=== PATIENT | female | born 1965 | race Caucasian/White ===

== ENCOUNTER 2016-08-11 10:14 | Day surgery (SDC) | payer MEDICARE, MEDICAID ==
[~2016-08-11] VITALS: Ht 162.6 cm; Wt 90.0 kg
--- NOTE | 2016-08-11 09:05 | PCM.HPANE ---
Patient Data Surgeon Admitting Provider: Attending Provider:Moreno Pena MD Primary Care Physician:Sonia Fragoso MD Other Provider:Yanelis Akers Anesthesia Reason for Visit Dysphagia Ht/WT & BMI Body Mass Index Allergies Coded Allergies: Penicillins (Verified Allergy, Severe, HAS LUPUS. CAN'T TAKE, 02/15/16) TAPE (Verified Allergy, Severe, UNKNOWN, 02/15/16) diazepam (Verified Allergy, Severe, BECOMES VIOLENT, 02/15/16) Hallucination fluoxetine (Verified Allergy, Severe, Hallucinations, 02/15/16) marijuana (Verified Allergy, Severe, convulsion, involutary muscle spasms , difficulty breathing, 02/15/16) sulfamethoxazole (Verified Allergy, Severe, RASH, 02/15/16) trimethoprim (Verified Allergy, Severe, 02/15/16) erythromycin base (Verified Allergy, Intermediate, Diarrhea, 02/15/16) amoxicillin (Verified Allergy, Mild, Rash,Itching,, 02/15/16) hydrocodone (Verified Allergy, Mild, ITCHY NOSE, 02/15/16) itchy nose Past Anesthesia History Anesthesia History: Positive for:: Anesthesia Reactions (LOSES VERBAL FILTER), Denies:: Abnormal Airway, Difficult Intubation, Fam Anesthesia Reaction, Fam Malignant Hypertherm, Malignant Hyperthermia Diabetes History Hx Diabetes?: No MRSA MRSA: No Medications Blood Thinner: Aspirin Reported Medications Omeprazole 20 Mg Tablet.dr20 Mg PO BID Ref 0 10/19/15 Aspirin 81 Mg Vsyzar57 Mg PO DAILY Ref 0 10/19/15 Albuterol HFA (Proair HFA)8.5 Gm Hfa.aer.ad2 Puffs INHALATION Q4H PRN For Shortness of Breath #1 INHALER 10/19/15 Quetiapine Fumarate (Seroquel)100 Mg Llybsl021 Mg PO HS #30 TABLET Ref 0 01/20/15 Atorvastatin Calcium 20 Mg TabletUnknown Dose PO DAILY #30 Ref 0 12/17/14 Tacrolimus (Protopic)100 Gm Oint...g.100 Gm TP BID 03/19/14 Clobetasol Propionate/Emoll (Temovate Emollient 0.05% Crm)60 Gm Cream..g.60 Gm TP DAILY 03/19/14 Beclomethasone Dipropionate (Qvar)8.7 Gm Aer.w.adap8.7 Gm IH BID 03/19/14 Levothyroxine 100 Mcg Asjwlf529 Mcg PO AM For Thyroid Replacement #30 TABLET Ref 0 03/19/14 Ranitidine 150 Mg Lypgxdv492 Mg PO BID 30 Days Ref 0 03/19/14 [mary jo] No Conflict Check Topical 03/19/14 Venlafaxine ER (Effexor XR)150 Mg Cap.er.51o762 Mg PO DAILY #30 CAPSULE Ref 0 03/19/14 Temazepam 15 Mg Rdfmarq17 Mg PO HS PRN For Insomnia 30 Days Ref 0 03/19/14 Gabapentin 400 Mg Capsule1,200 Mg PO TID 30 Days Ref 0 03/19/14 Doxepin 150 Mg Uaiusyr425 Mg PO 03/19/14 Prazosin 2 Mg Capsule4 Mg PO AM 30 Days 03/19/14 Cyclobenzaprine 10 Mg Orxcdy25 Mg PO TID PRN muscle spasms 03/19/14 Hydroxychloroquine Sulfate 200 Mg Bbolyl885 Mg PO BID #30 TABLET Ref 0 03/19/14 Acyclovir 400 Mg Eccuin756 Mg PO BID 30 Days Ref 0 03/19/14 Discontinued Reported Medications Prazosin 2 Mg Capsule6 Mg PO HS 30 Days 03/19/14 History History of ENT Problems?: Yes HEENT History: Positive for:: Dysphagia Sinus Problem (ALLERGIC RHINITIS) Denies:: Abnormal Airway Difficult Intubation Hearing Problem Hx of Heart Problems?: Yes Cardiovascular History: Positive for:: Cardiac Surgery (OR/STENT 08/2010) Chest Pain Edema (HYPERLIPIDEMIA) Denies:: AICD Atrial Fibrillation Congestive Heart Failure Heart Murmur Hypertension Irregular Heartbeat Pacemaker Thrombophlebitis Valvular Heart Disease Hx of Respiratory Problem?: Yes Respiratory History: Positive for:: COPD Dyspnea Use of C-PAP Machine (JESSENIA+ SLEEP STUDY 02/2011) Denies:: Asthma Chest Surgery Cough Emphysema Hemoptysis Pneumonia Tuberculosis Hx Neurologic Problems?: Yes Neurological History: Positive for:: Seizures (?ETIOLOGY?) Denies:: Alzheimer's Disease CVA Dementia Dizziness Headaches Parkinson's Disease Hx of GI Problems?: Yes Gastrointestinal History: Positive for:: Gastroesphageal Reflux Heartburn Denies:: Cirrhosis Diverticulitis Gastrointestinal Bleeding Hepatitis Hiatal Hernia Rectal Bleeding Hx of Problems?: No Female Hx: Denies:: Currently Endometriosis Pelvic Inflammatory Problems with Breasts? Skin History: Positive for:: History Skin Disorders? (LUPUS/ HX OF HERPES SIMPLEX) Denies:: Pressure Ulcers Hx Musculoskeletal Problems?: Yes Musculoskeletal History: Positive for:: Back Injury Musculoskeletal Trauma (S/P SHOULDER RPR,LT WRIST GANGLION EXC.) Systemic Lupus (HX OF SJOGRENS) Denies:: Joint Replacement Hx of Psycho/Social Problems?: Yes Psycho Social History: Positive for:: Anxiety Hx Depression Denies:: Bipolar Disorder Suicide Attempt Hx Surgeries?: Yes (hyst, tonsil, jeremias) Hx Any Other Health Problems?: Yes Other History: Positive for:: Hospitalization Thyroid Disease Denies:: Cancer Endocrine Disease History Blood Transfusions: Denies:: Blood Transfuse Reaction Blood Transfusions Hx Diabetes: No Hx Alcohol Use: NoHx Substance Use: No Smoking Status: Former Smoker Have You Smoked inLast 12 mo: Yes Stop/Bang Risk Assessment Category Category 1A: Patient has history of documented sleep apnea, and HAS NOT received any narcotic, sedative or anesthesia administration during this stay. Category 1B: Patient has history of documented sleep apnea, and HAS received any narcotic , sedative or anesthesia administration during this stay Category 2: Patient has SUSPECTED Obstructive Sleep Apnea, and HAS received any narcotic , sedative or anesthesia administration during this stay. Category 3: Patient has SUSPECTED Obstructive Sleep Apnea and HAS NOT received narcotic, sedative or anesthesia administration during this stay. Category 4: Outpatient in Procedural Areas with known sleep apnea or who screen positive for High Risk via the STOP/BANG questionnaire. Exam Exam General Appearance: Alert, Oriented X3, Cooperative, Mild Distress HEENT/AIRWAY: MP 2, Neck Movement (from), Mouth Opening (upper and lower dentures, normal opening) Lungs: Clear to Auscultation Heart: Exam Unremarkable Plan Impression Patient chart reviewed, patient interviewed and anesthestic plan with risks, benefits, and alternatives discussed, and informed consent obtained. NPO Status: 4/5 at 2330 ASA Physical Status: ASA2 Mod Systemic Disease Anesthetic Plan: GA Bene/Risks/Altern/Consents: Yes HP Complete Prior to Induction: Yes Hernesto Lawton MD Aug 11, 2016 09:05
[~2016-08-11 10:14] MED LIST: ACYC400T2 PO; ALBU8.5H2 INHALATION; ASPI-973 PO; ATOR20TA65 PO; BECL8.7A6 IH; CLOB60CR4 TP; CYCL10TA9 PO; DOXE150C7 PO; GABA-504 PO; HYDR200T5 PO; LEVO100T6 PO; Lactated Ringer's 1,000 ML IV ONE; OMEP20TA86 PO; PRAZ2CAP2 PO; QUET100T PO; RANI150C4 PO; RES15 PO; TACR100O2 TP; VENL150C PO; [UNRECOGNIZED DRUG - OTHER] TOPICAL
[2016-08-11] MEDS ORDERED: fentaNYL-PF 50 mCg/mL 2 mL Inj ONE (10:15)
[2016-08-11] MEDS ORDERED: Propofol 10,000 mCg/mL 20 mL Inj ONE (10:15)
[2016-08-11 11:03] VITALS: BP 123/73; PULSE 84; RESP 16; O2SAT 95
[2016-08-11 12:00] VITALS: BP 139/96; PULSE 90; RESP 14; O2SAT 95
[2016-08-11 12:05] VITALS: BP 121/68; PULSE 90; RESP 14; O2SAT 98
[2016-08-11 12:15] VITALS: BP 128/69; PULSE 94; RESP 16; O2SAT 97
--- NOTE | 2016-08-11 12:19 | ENDO ---
[address] [address] ENDOSCOPY PROCEDURE PATIENT: KATIE BERRIOS : 1965 MR#: [id number] ADMIT: 08/11/2016 JOB ID: [id number] DATE OF SERVICE: 08/11/2016 PROCEDURE PERFORMED: Esophagogastroduodenoscopy. INDICATION: Dysphagia. ASA CLASSIFICATION, MALLAMPATI SCORE AND MEDICATIONS: The patient's ASA classification, Mallampati score and medications as per Dr. Hernesto Lawton's anesthesia report. INSTRUMENT USED: [id number]. PROCEDURE DETAILS: After informed consent was obtained, the patient was brought into the GI suite, where she was placed on oxygen via nasal cannula and monitored with continuous pulse oximeter, telemetry, and blood pressure monitoring. A time-out was performed. Then, she was placed in the left lateral decubitus position, and medications were administered for sedation. A bite block was passed. A standard EGD scope was inserted through the bite block and advanced under direct visualization without difficulty to the second portion of the duodenum. FINDINGS: 1. Normal appearing duodenal bulb, first and second portions. 2. Normal appearing pylorus. 3. In the antrum and body of the stomach, there was erythema. In the body of the stomach, there was an approximately 1 cm area where exudate was noted. We were able to clear the exudate with copious amounts of irrigation. The underlying mucosa appeared erythematous and edematous. Multiple random biopsies were obtained at the focal erythematous lesion, as well as random biopsies were obtained. 4. Retroflexed views in the gastric body revealed normal appearing cardia and fundus. No hiatal hernia was appreciated. 5. The GE junction was at approximately 40 cm and appeared regular. 6. Normal appearing esophagus. Multiple random biopsies were obtained in midesophagus secondary to the patient's complaint of dysphagia. IMPRESSION: Gastritis. RECOMMENDATIONS: 1. Await biopsy results. 2. Continue PPI daily. 3. Avoid NSAIDs. 4. Follow up in GI clinic in 2-4 weeks. COMPLICATIONS: None. ESTIMATED BLOOD LOSS: Less than 5 mL. MTDD
--- NOTE | 2016-08-11 12:28 | PCM.ANEP1 ---
Post Anesthesia Phase 1 PACU Phase 1 Assessment Vital Signs Vital Signs Date Time Temp Pulse Resp B/P Pulse Ox O2 Delivery O2 Flow Rate FiO2 08/11/16 12:15 94 16 128/69 97 Room Air 08/11/16 12:05 90 14 121/68 98 Room Air 08/11/16 12:00 90 14 139/96 95 Room Air 08/11/16 11:03 36.5 84 16 123/73 95 Room Air Anesthetic Administered: GA Level of Alertness: Awake, talking CHAPIN's with Equal Strength: Yes Pain: No Nausea or Vomiting: No Oxygen Delivery: Room Air Lungs: Normal Air Movement Hernesto Lawton MD Aug 11, 2016 12:28
--- NOTE | 2016-08-11 12:49 | PCM.ANEP2 ---
Post Anesthesia Evaluation ASA/CMS Post Anesthesia VS in Patient's Normal Range?: Yes Resp Stable; Airway Patent?: Yes CV Function & Hydration Stable: Yes Mental Status Recovered?: Yes Pain control Satisfactory?: Yes N/V Control Satisfactory?: Yes Hernesto Lawton MD Aug 11, 2016 12:49
--- NOTE | 2016-08-12 13:21 | PATH ---
SURGICAL PATHOLOGY Attending Physician:Enrique Aguero CASE STATUS: Signed Out PATIENT NAME: KATIE BERRIOS PID: [id number] : 1965 DATE COLLECTED:08/11/2016 22:11 SPECIMEN: 1: Stomach, Antrum, Biopsy 2: Gastric, Biopsy 3: Esophagus, Biopsy CLINICAL HISTORY: 1). ANTRAL BIOPSY 2). GASTRIC BODY BIOPSY 3). MID ESOPHAGEAL BIOPSY FINAL DIAGNOSIS: 1. Antral Biopsy: Mid chronic gastritis involving antral mucosa. Negative for evidence of Helicobacter. Negative for intestinal metaplasia. Negative for dysplasia and malignancy. 2. Gastric Body Biopsy: Mild diffuse chronic gastritis involving fundic mucosa. Negative for evidence of Helicobacter. Negative for intestinal metaplasia. Negative for dysplasia and malignancy. 3. Mid Esophagus Biopsy: Fragments of squamous epithelium with nonspecific mild reactive changes. Negative for dysplasia and malignancy. Eosinophils are not increased. ICD10: K29.70 GROSS DESCRIPTION: The specimen is received in three formalin filled containers labeled with the patient's name. 1). The specimen is sublabeled "antral" and consists of 3 portions of tissue which aggregate to 0.3 x 0.3 x 0.2 CM. Specimen is entirely submitted in cassettes 1A. 2). The specimen is sublabeled "gastric body" and consists of 2 portions of tissue which aggregate to 0.3 x 0.3 x 0.3 CM. The specimen is entirely submitted in cassette 2A. 3). The specimen is sublabeled "mid esophageal" and consists of 4 portions of tissue which aggregate to 0.4 x 0.4 x 0.3 CM. The specimen is entirely submitted in cassette 3A. 08/11/2016 [facility] ICD-9 CODES: CPT CODES: 1: 42089 2: 31053 3: 03992 Electronically Signed Out Pedro Pablo Rey MD [facility] Pathology [facility] [address], [place] [address] Technical component performed at [facility], [address], [place], [address]
== END 2016-08-11 23:59 | disposition home or self-care (01) ==
LOC: END 10:14
PROVIDERS: ATTEND Internal Medicine Gastroenterology
DX: K29.50 Unspecified chronic gastritis without bleeding (principal); R13.10 Dysphagia, unspecified; I25.2 Old myocardial infarction; I25.10 Atherosclerotic heart disease of native coronary artery without angina pectoris; J44.9 Chronic obstructive pulmonary disease, unspecified; E78.5 Hyperlipidemia, unspecified; F41.9 Anxiety disorder, unspecified; F32.9 Major depressive disorder, single episode, unspecified; Z79.82 Long term (current) use of aspirin; Z79.899 Other long term (current) drug therapy; Z87.891 Personal history of nicotine dependence
CPT/HCPCS: 43239; 88305; J2250; J7120